=== PATIENT | male | born 1940 | race Caucasian/White ===

== ENCOUNTER → 2020-11-04 14:44 | Outpatient (BNVA) | payer MEDICARE, OTHER, SELFPAY | PROVIDERS: PCP Family Medicine; Visit Provider Specialist | DX: G23.1 Progressive supranuclear ophthalmoplegia [Steele-Richardson-Olszewski] (principal); F02.80 Dementia in other diseases classified elsewhere, unspecified severity, without behavioral disturbance, psychotic disturbance, mood disturbance, and anxiety; R13.10 Dysphagia, unspecified | CPT/HCPCS: 99205 ==

== ENCOUNTER 2020-11-25 08:02 | Outpatient (CLI) | payer OTHER, SELFPAY ==
--- NOTE | 2020-11-25 08:30 | FL_ITS ---
WS: [id number] ESOPHAGRAM TECHNIQUE: Double contrast examination was performed with thin and thick barium. Upright and HSU imag es were obtained. CLINICAL INFORMATION: R13.10 - Dysphagia, unspecified COMPARISON: None. FINDINGS: Limited examination performed due to patient's difficulty standing and mental status. Thick barium wa s utilized. Swallowing: No definite evidence of aspiration or penetration. Esophagus: Mild esophageal dysmotility. No high-grade stricture or mass. Gastroesophageal reflux: None visualized Fluoroscopy time: 1.6 minutes. FL/FL barium swallow [id number] IMPRESSION: 1. Very limited examination due to patient's difficulty standing and mental st atus 2. No definite evidence of aspiration or penetration. 3. Mild esophageal dysmotility. 4. No obstructing stricture or mass. 5. Consider modified barium swallow with speech therapy in further evaluation
== END 2020-11-25 08:03 | disposition home or self-care (01) ==
PROVIDERS: PCP Family Medicine; Visit Provider Specialist
DX: R13.10 Dysphagia, unspecified (principal)
CPT/HCPCS: 74220